=== PATIENT | female | born 1965 | race African-American/Black ===

== ENCOUNTER 2016-05-24 19:26 | Emergency (ER) | payer OTHER ==
[2016-05-24 19:46] VITALS: BP 144/77; PULSE 75; TEMP 97.6; BMI 35.7
--- NOTE | 2016-05-24 20:58 | PDOC ---
History of Present Illness - General Chief Complaint: Pain Stated Complaint: BURPING A LOT/UNDER LT ARM PAIN/LT SHOULDER PAIN Time Seen by Provider: 05/24/16 20:36 History Source: Patient Exam Limitations: No Limitations - History of Present Illness Initial Comments: 05/25/16 00:38 Chief complaint: Left shoulder pain and upper left arm pain that radiated to left chest intermittently late afternoon and evening and pain from left axilla area to left chest intermittently patient reports belching once when she had pain History of present illness: Patient is a 51-year-old female who reports not having any significant medical problems here today due to patient feeling a sudden onset of pain that shot from her left shoulder and upper arm down to her left chest that was sharp in nature intermittently late afternoon and evening today. Patient also reports having pain that she was radiating from under her left axilla area to left chest area that lasted seconds and was sharp in nature patient reports that she felt shortness of breath for a few seconds when having this pain. Patient reports that at one point she did belch after having pain that was shooting from left shoulder upper arm to chest. Patient describes the pain as sharp in nature lasting only for seconds. Patient denies any previous history of having pain like this before. Patient denies that pain radiated radiated down her left arm. Patient denies any abdominal discomfort. Patient reports that she had recently been put on omeprazole after having a colonoscopy and noticing that she had bacteria in her stomach and was given antibiotic and omeprazole. Patient reports that she'll he took omeprazole for a couple of days due to feeling lightheaded. Eyes any history of hypertension, diabetes, family history of cardiac disease. Patient denies any history of smoking or drinking. Patient denies doing any heavy lifting or pulling or pushing that might of course pain. Patient does have risk factor of being obese and having xanthelasma upper b/l eyelids. Denies any pain currently. Patient denied during episodes of pain today having any palpitations or any lightheadedness or dizziness. 05/25/16 00:49 Timing/Duration: intermittent Severity: moderate Associated Symptoms: reports: chest pain (left intermittent , left shoulder area left upper arm radiating to left chest intermittently this evening late afternoon lasting seconds, and pain from left exactly at to left chest intermittently lasting seconds). denies: cough, diaphoresis, headaches, malaise , nausea/vomiting, shortness of breath, syncope, weakness Past History - Past Medical History Allergies/Adverse Reactions: Allergies Allergy/AdvReac Type Severity Reaction Status Date / Time No Known Allergies Allergy Verified 05/24/16 19:46 Home Medications: Ambulatory Orders No Home Medications 0 dose .ROUTE UTDICT 06/22/12 Anemia: No Asthma: No Cancer: No CVA: No CHF: No GI Disorders: No Disorders: No Liver Disease: No Seizures: No Thyroid Disease: No - Psycho/Social/Smoking Cessation Hx Anxiety: No Suicidal Ideation: No Smoking Status: No Smoking History: Never smoked Have you smoked in the past 12 months: No Number of Cigarettes Smoked Daily: 0 Information on smoking cessation initiated: No Hx Alcohol Use: No Drug/Substance Use Hx: No Substance Use Type: None Hx Substance Use Treatment: No Review of Systems - Review of Systems Able to Perform ROS?: Yes Constitutional: No: Symptoms Reported HEENTM: No: Symptoms Reported Respiratory: No: Symptoms reported Cardiac (ROS): Yes: Chest Pain (left chest intermittent sharp pain lasting seconds late afternoon/early evening ). No: Irregular Heart Rate, Lightheadedness, Palpitations, Syncope, Chest Tightness ABD/GI: Yes: Other (belged once during episodes of pain ). No: Abdominal Distended, Constipated, Diarrhea, Difficulty Swallowing, Nausea, Poor Fluid Intake, Rectal Bleeding, Vomiting, Indigestion, Abdominal cramping : No: Symptoms Reported Musculoskeletal: Yes: Joint Pain (left shoulder, upper left arm intermittent sharp pain lasting seconds not reproducible), Other (pain intermittent left axilla radiating to left chest lasting minutes late afternoon evening ) Integumentary: No: Symptoms Reported Neurological: No: Symptoms reported *Physical Exam - Vital Signs Last Vital Signs Temp Pulse Resp BP Pulse Ox 97.6 F 75 18 144/77 100 05/24/16 19:44 05/24/16 19:44 05/24/16 19:44 05/24/16 19:44 05/24/16 19:44 - Physical Exam General Appearance: Yes: Appropriately Dressed Respiratory/Chest: positive: Lungs Clear, Normal Breath Sounds. negative: Chest Tender, Respiratory Distress Cardiovascular: positive: Regular Rhythm, Regular Rate, S1, S2 Gastrointestinal/Abdominal: positive: Normal Bowel Sounds, Soft. negative: Tender, Organomegaly, Distended, Guarding, Rebound, Tenderness, Hepatomegaly, Spleenomegaly Extremity: positive: Normal Capillary Refill, Normal Inspection, Normal Range of Motion (left shoulder, left upper arm ). negative: Tender, Swelling Integumentary: positive: Normal Color Neurologic: positive: Fully Oriented, Alert, Normal Response, Motor Strength 5/ 5 (upper extremities ), Responsive. negative: Numbness, Sensory Deficit (left arm, shoulder) Heart Score/ECG Review - ECG Impressions Comment:: 05/24/16 21:[address] Paige ED Treatment Course - LABORATORY CBC & Chemistry Diagram: 05/24/16 21:30 05/24/16 21:30 Medical Decision Making - Medical Decision Making 05/25/16 00:43 Patient is a 51-year-old female who reports not having any significant medical problems here today due to patient feeling a sudden onset of pain that shot from her left shoulder and upper arm down to her left chest that was sharp in nature intermittently late afternoon and evening today. Patient also reports having pain that she was radiating from under her left axilla area to left chest area that lasted seconds and was sharp in nature patient reports that she felt shortness of breath for a few seconds when having this pain. Patient reports that at one point she did belch after having pain that was shooting from left shoulder upper arm to chest. Patient describes the pain as sharp in nature lasting only for seconds. Patient denies any previous history of having pain like this before. Patient denies that pain radiated radiated down her left arm. Patient denies any abdominal discomfort. Patient reports that she had recently been put on omeprazole after having a colonoscopy and noticing that she had bacteria in her stomach and was given antibiotic and omeprazole. Patient reports that she'll he took omeprazole for a couple of days due to feeling lightheaded. Eyes any history of hypertension, diabetes, family history of cardiac disease. Patient denies any history of smoking or drinking. Patient denies doing any heavy lifting or pulling or pushing that might of course pain. Patient does have risk factor of being obese and having xanthelasma upper b/l eyelids. Denies any pain currently. Intermittent pain from left shoulder upper arm radiating to chest late this afternoon and this evening and also from left distal ureter left chest intermittently Patient denied any abdominal pain Pain to left shoulder upper arm and axilla area to left chest is not reproducible Plan: EKG reviewed by Dr. Paige ST depression anterior leads Maalox 30 ml now xray chest PA/lateral CBC with Diff CMP lipase IV insert pepsid 20 mg IV PB troponin Chelsy charge nurse and Dr. Paige aware that pt. will transfer to main ED for further evaluation 05/25/16 00:46 05/25/16 00:52 *DC/Admit/Observation/Transfer Diagnosis at time of Disposition: Atypical chest pain - Discharge Dispostion Disposition: HOME Condition at time of disposition: Improved - Referrals Referrals: Rafi Hannon MD [Primary Care Provider] - Don Hayden MD [Staff Physician] - - Patient Instructions Printed Discharge Instructions: DI for Atypical Chest Pain, DI for Palpitations Additional Instructions: Please take a copy of results and bring it to your doctor. If you have uncontrollable chest pain or shortness of breath, please return to the ER for further evaluation.
[2016-05-24] MEDS ORDERED: MAG HYDROX/AL HYDROX/SIMETH 30 ML UNIT-DOSE CUP ONE (21:13)
[2016-05-24] MEDS ORDERED: MAG HYDROX/AL HYDROX/SIMETH 30 ML UNIT-DOSE CUP PO ONE (21:15)
[2016-05-24] MEDS ORDERED: FAMOTIDINE 20 MG/50 ML IVPB 50 ML IVPB ONE (21:25)
[2016-05-24 22:03] LABS: ANION GAP 7 (8-16); BILIRUBIN,TOTAL 0.3 mg/dL (0.2-1.0); CALCIUM 9.6 mg/dL (8.5-10.1); CO2 29 mmol/L (21-32); CREATININE 0.7 mg/dL (0.55-1.02); GLUCOSE,RANDOM 90 mg/dL (74-106); SGOT/AST 15 U/L (15-37); SGPT/ALT 18 U/L (12-78); TOT PROT 7.6 g/dl (6.4-8.2)
[2016-05-24 22:04] LABS: ALK PHOS 102 U/L (45-117)
[2016-05-24] MEDS ORDERED: ACETAMINOPHEN 325 MG TABLET (FP) PO ONE (22:06)
[2016-05-24] MEDS ORDERED: RANITIDINE HCL 150 MG TABLET (FP) PO ONE (22:06)
[2016-05-24] MEDS ORDERED: ACETAMINOPHEN 325 MG TABLET (FP) ONE (22:09)
[2016-05-24] MEDS ORDERED: RANITIDINE HCL 150 MG TABLET (FP) ONE (22:10)
--- NOTE | 2016-05-24 22:24 | PDOC ---
History of Present Illness - History of Present Illness Initial Comments: 05/24/16 23:16 Patient is a 51 year old female with significant medical hx of gastritis and H. Pylori who is presenting to the ED with left shoulder pain since this evening. The patient complains of intermittent left sided shoulder pain that occurs for several minutes at a time. Her pain is non-exertional and is described as an ache. The patient denies any recent falls or trauma to the shoulder. She also endorses some abdominal discomfort that she states is secondary to her gastritis. Patient denies any fever, chills, chest pain, shortness of breath, and diaphoresis. <Aliza Ireland - Last Filed: 05/24/16 23:16> - General History Source: Patient Exam Limitations: No Limitations <Jaiden Paige - Last Filed: 05/25/16 00:15> - General Chief Complaint: Pain Stated Complaint: BURPING A LOT/UNDER LT ARM PAIN/LT SHOULDER PAIN Time Seen by Provider: 05/24/16 20:36 Past History <Aliza Ireland - Last Filed: 05/24/16 23:16> - Past Medical History Anemia: No Asthma: No Cancer: No CVA: No CHF: No GI Disorders: No Disorders: No Liver Disease: No Seizures: No Thyroid Disease: No - Psycho/Social/Smoking Cessation Hx Anxiety: No Suicidal Ideation: No Smoking Status: No Smoking History: Never smoked Have you smoked in the past 12 months: No Number of Cigarettes Smoked Daily: 0 Information on smoking cessation initiated: No Hx Alcohol Use: No Drug/Substance Use Hx: No Substance Use Type: None Hx Substance Use Treatment: No <Jaiden Paige - Last Filed: 05/25/16 00:15> - Past Medical History Allergies/Adverse Reactions: Allergies Allergy/AdvReac Type Severity Reaction Status Date / Time No Known Allergies Allergy Verified 05/24/16 19:46 Home Medications: Ambulatory Orders No Home Medications 0 dose .ROUTE UTDICT 06/22/12 Review of Systems - Review of Systems Comments:: 05/24/16 23:20 GENERAL/CONSTITUTIONAL: No fever or chills. No weakness. HEAD, EYES, EARS, NOSE AND THROAT: No change in vision. No ear pain or discharge. No sore throat. CARDIOVASCULAR: No chest pain or shortness of breath. RESPIRATORY: No cough, wheezing, or hemoptysis. GASTROINTESTINAL: Abdominal discomfort. No nausea, vomiting, diarrhea or constipation. GENITOURINARY: No dysuria, frequency, or change in urination. MUSCULOSKELETAL: Left sided shoulder pain. No joint or muscle swelling. No neck pain. SKIN: No rash NEUROLOGIC: No headache, vertigo, loss of consciousness, or change in strength/ sensation. <BekaDaronAliza - Last Filed: 05/24/16 23:16> *Physical Exam - Vital Signs Last Vital Signs Temp Pulse Resp BP Pulse Ox 97.6 F 75 18 144/77 100 05/24/16 19:44 05/24/16 19:44 05/24/16 19:44 05/24/16 19:44 05/24/16 19:44 - Physical Exam Comments: 05/24/16 23:21 GENERAL: Awake, alert, and fully oriented, in no acute distress HEAD: No signs of trauma EYES: PERRLA, EOMI, sclera anicteric, conjunctiva clear ENT: Auricles normal inspection, hearing grossly normal, nares patent, oropharynx clear without exudates. Moist mucosa NECK: Normal ROM, supple, no lymphadenopathy, JVD, or masses LUNGS: Breath sounds equal, clear to auscultation bilaterally. No wheezes, and no crackles HEART: Regular rate and rhythm, normal S1 and S2, no murmurs, rubs or gallops ABDOMEN: Soft, nontender, normoactive bowel sounds. No guarding, no rebound. No masses EXTREMITIES: Normal range of motion, no edema. No clubbing or cyanosis. No cords, erythema, or tenderness NEUROLOGICAL: Cranial nerves II through XII grossly intact. Normal speech, normal gait SKIN: Warm, Dry, normal turgor, no rashes or lesions noted. ENDOCRINE: No increased thirst. No abnormal weight change. HEMATOLOGIC/LYMPHATIC: No anemia, easy bleeding, or history of blood clots. ALLERGIC/IMMUNOLOGIC: No hives or skin allergy. <BekaAliza - Last Filed: 05/24/16 23:16> - Vital Signs Last Vital Signs Temp Pulse Resp BP Pulse Ox 97.6 F 75 18 144/77 100 05/24/16 19:44 05/24/16 19:44 05/24/16 19:44 05/24/16 19:44 05/24/16 19:44 <Jaiden Paige - Last Filed: 05/25/16 00:15> Heart Score/ECG Review - History History: Slightly suspicious - Electrocardiogram EKG: Non specific repolarization disturbance - Age Age: 45-65 - Risk Factors Based on the list above the patient has:: No risk factors known - Troponin Troponin: </= normal limit - Score Heart Score - Total: 2 #1 ECG reviewed & interpreted by me at: 21:00 05/24/16 22:24 NSR 75, TWi III , VWI V4-V6, no std/ann, normal axis, normal intervals, QTC 422 msec <Jaiden Paige - Last Filed: 05/25/16 00:15> ED Treatment Course - LABORATORY CBC & Chemistry Diagram: 05/24/16 21:30 05/24/16 21:30 - ADDITIONAL ORDERS Additional order review: Laboratory Results 05/24/16 05/24/16 21:30 21:30 Sodium 141 Potassium 3.9 Chloride 105 Carbon Dioxide 29 Anion Gap 7 L BUN 11 Creatinine 0.7 Creat Clearance w eGFR > 60 Random Glucose 90 Calcium 9.6 Total Bilirubin 0.3 AST 15 D ALT 18 Alkaline Phosphatase 102 Creatine Kinase 201 H Troponin I < 0.02 Total Protein 7.6 Albumin 4.0 Lipase Cancelled 133 05/24/16 21:30 RBC 4.97 MCV 77.9 L MCHC 33.7 RDW 15.0 MPV 8.9 Neutrophils % 41.2 L Lymphocytes % 49.5 H Monocytes % 6.0 Eosinophils % 2.5 Basophils % 0.8 - Medications Given in the ED: ED Medications Discontinued Medications Generic Name Dose Route Start Last Admin Trade Name Zafar PRN Reason Stop Dose Admin Acetaminophen 650 mg 05/24/16 22:06 05/24/16 22:12 Tylenol - PO 05/24/16 22:07 650 mg ONCE ONE Administration Al Hydroxide/Mg Hydroxide 30 ml 05/24/16 21:15 05/24/16 21:21 Mylanta Oral Suspension - PO 05/24/16 21:16 30 ml ONCE ONE Administration Famotidine/Sodium Chloride 50 mls @ 100 mls/hr 05/24/16 21:25 05/24/16 22:13 Pepcid 20 Mg Premixed Ivpb - IVPB 05/24/16 21:54 Not Given ONCE ONE Ranitidine HCl 150 mg 05/24/16 22:06 05/24/16 22:12 Zantac - PO 05/24/16 22:07 150 mg ONCE ONE Administration <Aliza Ireland - Last Filed: 05/24/16 23:16> - LABORATORY CBC & Chemistry Diagram: 05/24/16 21:30 05/24/16 21:30 - ADDITIONAL ORDERS Additional order review: Laboratory Results 05/24/16 05/24/16 21:30 21:30 Sodium 141 Potassium 3.9 Chloride 105 Carbon Dioxide 29 Anion Gap 7 L BUN 11 Creatinine 0.7 Creat Clearance w eGFR > 60 Random Glucose 90 Calcium 9.6 Total Bilirubin 0.3 AST 15 D ALT 18 Alkaline Phosphatase 102 Total Protein 7.6 Albumin 4.0 Lipase Cancelled 133 - Medications Given in the ED: ED Medications Discontinued Medications Generic Name Dose Route Start Last Admin Trade Name Federicoq PRN Reason Stop Dose Admin Acetaminophen 650 mg 05/24/16 22:06 05/24/16 22:12 Tylenol - PO 05/24/16 22:07 650 mg ONCE ONE Administration Al Hydroxide/Mg Hydroxide 30 ml 05/24/16 21:15 05/24/16 21:21 Mylanta Oral Suspension - PO 05/24/16 21:16 30 ml ONCE ONE Administration Famotidine/Sodium Chloride 50 mls @ 100 mls/hr 05/24/16 21:25 05/24/16 22:13 Pepcid 20 Mg Premixed Ivpb - IVPB 05/24/16 21:54 Not Given ONCE ONE Ranitidine HCl 150 mg 05/24/16 22:06 05/24/16 22:12 Zantac - PO 05/24/16 22:07 150 mg ONCE ONE Administration <Jaiden Paige - Last Filed: 05/25/16 00:15> Medical Decision Making - Medical Decision Making 05/24/16 22:24 A portion of this note was documented by scribe services under my direction. I have reviewed the details of the note, within reason, and agree with the documentation with the following case summary and management plan written by me. Patient treated in the ED. Nursing notes are reviewed and incorporated into the medical decision-making. Vital signs reviewed. Peripheral IV access obtained by the nurse, laboratory studies are drawn and sent, reviewed and interpreted by myself. Vital Signs Temp Pulse Resp BP Pulse Ox 97.6 F 75 18 144/77 100 05/24/16 19:44 05/24/16 19:44 05/24/16 19:44 05/24/16 19:44 05/24/16 19:44 51-year-old female with past medical history of gastritis and H. pylori presents to the emergency department for atypical left sided shoulder pain. Patient reports that she had some epigastric abdominal discomfort that feels secondary to her gastritis. She noted throughout the evening time that she was feeling this intermittent several minutes, nonexertional left shoulder ache. Patient denies any midsternal chest pain. Denies short of breath. She reports that the pain is coming going. Upon my knowledge, patient no symptoms at this time. I suspect that the patient's symptoms are likely secondary to her GERD and gastritis and irritation to her shoulder. My suspicion for acute coronary syndrome is low. However, patient noted to have T-wave versions in V4 through V6 with no EKGs to compare to. We'll obtain to troponins and if workup is negative, we'll discharge with cardiology follow-up as an outpatient. She is deemed to be very low risk given her atypical nature. 05/25/16 00:12 Chest xray reviewed by me, pending official read. No acute findings. CBC, BMP 05/24/16 21:30 05/24/16 21:30 CMP Sodium 141 mmol/L (136-145) 05/24/16 21:30 Potassium 3.9 mmol/L (3.5-5.1) 05/24/16 21:30 Chloride 105 mmol/L (98-107) 05/24/16 21:30 Carbon Dioxide 29 mmol/L (21-32) 05/24/16 21:30 Anion Gap 7 (8-16) L 05/24/16 21:30 BUN 11 mg/dL (7-18) 05/24/16 21:30 Creatinine 0.7 mg/dL (0.55-1.02) 05/24/16 21:30 Creat Clearance w eGFR > 60 (>60) 05/24/16 21:30 Random Glucose 90 mg/dL (74-106) 05/24/16 21:30 Calcium 9.6 mg/dL (8.5-10.1) 05/24/16 21:30 Total Bilirubin 0.3 mg/dL (0.2-1.0) 05/24/16 21:30 AST 15 U/L (15-37) D 05/24/16 21:30 ALT 18 U/L (12-78) 05/24/16 21:30 Alkaline Phosphatase 102 U/L (45-117) 05/24/16 21:30 Creatine Kinase 191 IU/L (26-192) 05/24/16 23:18 CK-MB (CK-2) 1.581 ng/ml (0.5-3.6) 05/24/16 21:30 Troponin I < 0.02 ng/ml (0.00-0.05) 05/24/16 23:18 Total Protein 7.6 g/dl (6.4-8.2) 05/24/16 21:30 Albumin 4.0 g/dl (3.4-5.0) 05/24/16 21:30 Lipase 133 U/L (73-393) 05/24/16 21:30 Two troponins negative. Patient reports feeling well. She feels reassured. Again, I suspect that this is atypical chest pain and not acute coronary syndrome. We'll give referral to a sr account executive. Return precautions given. I discussed the physical exam findings, ancillary test results and final diagnoses with the patient. I answered all of the patient's questions. The patient was satisfied with the care received and felt comfortable with the discharge plan and treatment plan. The patient will call their primary care physician within 24 hours to arrange follow-up and will return to the Emergency Department with any new, persistant or worsening symptoms. <Jaiden Paige - Last Filed: 05/25/16 00:15> *DC/Admit/Observation/Transfer - Attestations Scribe Attestion: 05/24/16 23:21 Documentation prepared by Aliza Ireland, acting as medical equipment repairer for Jaiden Paige MD. <Aliza Ireland - Last Filed: 05/24/16 23:16> - Discharge Dispostion Admit: No <Jaiden Paige - Last Filed: 05/25/16 00:15> Diagnosis at time of Disposition: Atypical chest pain - Discharge Dispostion Disposition: HOME Condition at time of disposition: Improved - Referrals Referrals: Rafi Hannon MD [Primary Care Provider] - Don Hayden MD [Staff Physician] - - Patient Instructions Printed Discharge Instructions: DI for Atypical Chest Pain, DI for Palpitations Additional Instructions: Please take a copy of results and bring it to your doctor. If you have uncontrollable chest pain or shortness of breath, please return to the ER for further evaluation.
[2016-05-24 22:42] LABS: BASOPHIL 0.8 % (0-2.0); EOSINOPHIL 2.5 % (0-4.5); MCH 26.2 pg (25.7-33.7); MCHC 33.7 g/dl (32.0-36.0); MEAN CELL VOLUME 77.9 fl (80-96); MEAN PLT VOLUME 8.9 fl (7.5-11.1); NEUTROPHILS 41.2 % (42.8-82.8); PLATELET COUNT 208 K/MM3 (134-434); WHITE BLOOD COUNT 6.5 K/mm3 (4.0-10.0)
[2016-05-24 22:57] LABS: TROPONIN I < 0.02 ng/ml (0.00-0.05)
[2016-05-24 23:21] LABS: PLATELET ESTIMATE ADEQUATE (NORMAL)
[2016-05-25 00:05] LABS: TROPONIN I < 0.02 ng/ml (0.00-0.05)
--- NOTE | 2016-05-26 11:23 | EKG ---
Test Reason : Blood Pressure : / mmHG Vent. Rate : 075 BPM Atrial Rate : 075 BPM P-R Int : 146 ms QRS Dur : 072 ms QT Int : 378 ms P-R-T Axes : 037 037 003 degrees QTc Int : 422 ms NORMAL SINUS RHYTHM POSSIBLE LEFT ATRIAL ENLARGEMENT NONSPECIFIC T WAVE ABNORMALITY ABNORMAL ECG WHEN COMPARED WITH ECG OF 24-SEP-2013 14:10, NO SIGNIFICANT CHANGE WAS FOUND Confirmed by LUCIE SCHWARTZ MD ([id number]) on 05/26/2016 11:22:59 AM Referred By: Confirmed By:LUCIE SCHWARTZ MD
== END 2016-05-25 00:52 | disposition home or self-care (01) ==
LOC: JERFT 19:26 → JER 19:26
DX: R07.89 Other chest pain (principal)
CPT/HCPCS: 36415; 71020-TC; 80053; 82550; 82553; 83690; 84484; 85025; 93005; 93010; 99282-25

== ENCOUNTER 2016-10-21 18:01 | Emergency (ER) | payer OTHER ==
[2016-10-21 18:19] VITALS: BP 119/77; PULSE 77; TEMP 98.3; BMI 33.6
[2016-10-21] MEDS ORDERED: IBUPROFEN 600 MG TABLET (FP) PO ONE (18:30)
--- NOTE | 2016-10-21 18:31 | PDOC ---
History of Present Illness - General Chief Complaint: Ear Problem Stated Complaint: HEADACHE ON LEFT SIDE Time Seen by Provider: 10/21/16 18:23 History Source: Patient Exam Limitations: No Limitations - History of Present Illness Initial Comments: 10/21/16 18:31 51 yr female with c/o right side ear pain radiates to side of neck for 4 days with headache on the right side. pt denies fever, chills no sore throat. . 10/21/16 19:00 Severity: moderate Past History - Past Medical History Allergies/Adverse Reactions: Allergies Allergy/AdvReac Type Severity Reaction Status Date / Time No Known Allergies Allergy Verified 10/21/16 18:34 Home Medications: Ambulatory Orders No Home Medications 0 dose .ROUTE UTDICT 06/22/12 Naproxen [Naprosyn -] 500 mg PO BID #28 tablet 10/21/16 Anemia: No Asthma: No Cancer: No CVA: No CHF: No GI Disorders: No Disorders: No Liver Disease: No Seizures: No Thyroid Disease: No Other medical history: DENIES MEDICAL HX - Psycho/Social/Smoking Cessation Hx Anxiety: No Suicidal Ideation: No Smoking Status: No Smoking History: Never smoked Have you smoked in the past 12 months: No Number of Cigarettes Smoked Daily: 0 Hx Alcohol Use: No Drug/Substance Use Hx: No Substance Use Type: None Hx Substance Use Treatment: No *Physical Exam - Vital Signs Last Vital Signs Temp Pulse Resp BP Pulse Ox 98.3 F 77 16 119/77 100 10/21/16 18:17 10/21/16 18:17 10/21/16 18:17 10/21/16 18:17 10/21/16 18:17 - Physical Exam General Appearance: Yes: Nourished, Appropriately Dressed HEENT: positive: EOMI, JESSICA, Normal ENT Inspection, TMs Normal, Pharynx Normal. negative: Pharyngeal Erythema, Tonsillar Exudate, Tonsillar Erythema Neck: positive: Supple, Other (FROM neg midline tenderness ). negative: Tender , Decreased range of motion, Rigidity, Tender lateral, Tender midline Respiratory/Chest: positive: Lungs Clear, Normal Breath Sounds Cardiovascular: positive: Regular Rhythm, Regular Rate Gastrointestinal/Abdominal: positive: Normal Bowel Sounds, Soft Lymphatic: negative: Adenopathy Musculoskeletal: positive: Normal Inspection Extremity: positive: Normal Capillary Refill, Normal Inspection, Normal Range of Motion Integumentary: positive: Normal Color, Dry, Warm Neurologic: positive: informatics scientist II-XII NML intact, Fully Oriented, Alert, Normal Mood/ Affect, Normal Response, Motor Strength 07/12 ED Treatment Course - LABORATORY CBC & Chemistry Diagram: 10/21/16 18:50 - RADIOLOGY Radiology Studies Ordered: Category Date Time Status NECK SOFT TISSUE [RAD] Stat Radiology 10/21/16 18:30 Ordered Medical Decision Making - Medical Decision Making 10/21/16 18:35 cc: right ear pain to side of neck and throat for 4 days took tylenol no relief no fever no chills no chest pain or coughing no recent travel no trauma will r/o strep will get soft tissue neck 10/21/16 18:49 soft tissue negative will get CTA r/o carotid artery disection/occlusion 10/21/16 19:01 10/21/16 21:28 radiology tests have resulted and are all negative for acute pathology. I will refer pt to ENT and give pain medicine there is no sign of infection at present, no fever, no chills. rapid strep is negative. *DC/Admit/Observation/Transfer Diagnosis at time of Disposition: Right ear pain, Neck pain on right side - Discharge Dispostion Disposition: HOME Condition at time of disposition: Good - Prescriptions Prescriptions: Naproxen [Naprosyn -] 500 mg PO BID #28 tablet - Referrals Referrals: Rafi Hannon MD [Primary Care Provider] - Foster Cummings MD [Staff Physician] - - Patient Instructions Additional Instructions: please follow with the ENT doctor and your primary care doctor for follow up take naprosyn for pain as directed
[2016-10-21] MEDS ORDERED: IBUPROFEN 400 MG TABLET (FP) PO ONE (18:32)
[2016-10-21 19:50] LABS: ALBUMIN 3.8 g/dl (3.4-5.0); ANION GAP 6 (8-16); BILIRUBIN,TOTAL 0.4 mg/dL (0.2-1.0); CO2 30 mmol/L (21-32); CREATININE 0.8 mg/dL (0.55-1.02); GLUCOSE,RANDOM 98 mg/dL (74-106); SGOT/AST 13 U/L (15-37); SGPT/ALT 21 U/L (12-78); TOT PROT 7.2 g/dl (6.4-8.2)
[2016-10-21 19:51] LABS: ALK PHOS 91 U/L (45-117)
== END 2016-10-21 21:50 | disposition home or self-care (01) ==
LOC: JERFT 18:01
DX: H92.01 Otalgia, right ear (principal); M54.2 Cervicalgia
CPT/HCPCS: 36415; 70360-TC; 70450-TC; 70498-TC; 80053; 87070; 87430; 99281-25

== ENCOUNTER 2018-03-31 18:06 | Emergency (ER) | payer OTHER ==
--- NOTE | 2018-03-31 18:11 | PDOC ---
Rapid Medical Evaluation Chief Complaint: Headache Time Seen by Provider: 03/31/18 18:09 Medical Evaluation: Allergies Allergy/AdvReac Type Severity Reaction Status Date / Time No Known Allergies Allergy Verified 10/21/16 18:34 03/31/18 18:10 I have performed a brief in person evaluation of this patient. The patient's CC: WOO HPI: Pt is a 53 Yo female who states she has had a WOO x 3 weeks. Denies hx of migraines, denies N/V. Denies fever or nuchal rigidity. PE: Skin: Clear Heart: RRR Lungs: Clear MS. moves all extremities without difficulty. Neuro: Alert and oriented Psch: appropriate affect The patient will proceed to [facility] for further evaluation. Discharge Disposition - Diagnosis Headache Qualifiers: Headache type: unspecified Headache chronicity pattern: acute headache Intractability: not intractable Qualified Code(s): R51 - Headache - Referrals - Patient Instructions - Post Discharge Activity
[2018-03-31 18:13] VITALS: BMI 33.6
--- NOTE | 2018-03-31 21:10 | PDOC ---
Attending Attestation - HPI HPI: 03/31/18 23:01 The patient is a 53 year old female, with no significant past medical history, who presents to the emergency department with, 1-2 weeks of a headache described as right sided, achy, squeezing. She denies any visionary changes or recent head/neck trauma. She denies recent fevers, chills, or dizziness. She denies recent nausea, vomit, diarrhea or constipation. She denies recent dysuria, frequency, urgency or hematuria. She denies recent chest pain or shortness of breath. Allergies: NKDA <Elias Marie - Last Filed: 03/31/18 23:01> - Resident Resident Name: Diamond Dye - ED Attending Attestation I have performed the following: I have examined & evaluated the patient, The case was reviewed & discussed with the resident, I agree w/resident's findings & plan - Physicial Exam PE: 03/31/18 23:53 Agree with resident exam - Medical Decision Making 03/31/18 23:53 Well-appearing 53-year-old female with intermittent right-sided headache Patient denies history of headaches in the past though she was seen approximately 1-1/2 years ago for similar complaints CT scan of the brain performed today is within normal limits Headache was not sudden in onset, there is no associated neck stiffness or fever , based on clinical presentation and history lumbar puncture is not indicated at this time would present more potential risk and benefits Plan is for discharge home with outpatient neurology follow-up for further evaluation <Leila Robledo - Last Filed: 03/31/18 23:54> Attestations - Attestations 03/31/18 23:01 Documentation prepared by Elias Marie, acting as medical instrument cable fabricator for Leila Robledo DO. <Elias Marie - Last Filed: 03/31/18 23:01>
[2018-03-31] MEDS ORDERED: METOCLOPRAMIDE HCL 10 MG TABLET (FP) PO ONE ×2 (22:16→23:49)
[2018-03-31] MEDS ORDERED: SODIUM CHLORIDE 0.9% 500 ML INFUS.BAG IV ONE (22:16)
[2018-03-31] MEDS ORDERED: ACETAMINOPHEN 1000 MG/100 ML VIAL (NON FORMULARY) IVPB ONE (22:18)
--- NOTE | 2018-03-31 22:40 | PDOC ---
History of Present Illness - General Chief Complaint: Headache Stated Complaint: Headache Time Seen by Provider: 03/31/18 18:09 - History of Present Illness Initial Comments: 53 year old female with no PMH presenting with right sided headache for the past week refractory to Ibuprofen, Tylenol, and Excedrin at home. States that it is an achy and squeeezing pain that radiates upa nd down the right side of his head. Denies any nausea, vomiting, focal deficit, photophobia, or sonophobia. Better with tylenol, motrion, and rest. Worse when bending over and at night. She is a home health aid. Denies any fevers, chills, chest pain, or other symptoms. She sees Dr. Patel for her PCP needs. 03/31/18 22:40 Past History - Past Medical History Allergies/Adverse Reactions: Allergies Allergy/AdvReac Type Severity Reaction Status Date / Time No Known Allergies Allergy Verified 03/31/18 18:10 Home Medications: Ambulatory Orders No Home Medications 0 dose .ROUTE UTDICT 06/22/12 Naproxen [Naprosyn -] 500 mg PO BID #28 tablet 10/21/16 Anemia: No Asthma: No Cancer: No CVA: No COPD: No CHF: No GI Disorders: No Disorders: No Liver Disease: No Seizures: No Thyroid Disease: No - Immunization History Immunization Up to Date: Yes - Suicide/Smoking/Psychosocial Hx Smoking Status: No Smoking History: Never smoked Have you smoked in the past 12 months: No Number of Cigarettes Smoked Daily: 0 Hx Alcohol Use: No Drug/Substance Use Hx: No Substance Use Type: None Hx Substance Use Treatment: No Review of Systems - Review of Systems Constitutional: No: Chills, Diaphoresis, Fever, Loss of Appetite HEENTM: No: Blurred Vision, Tearing, Recent change in vision, Double Vision Respiratory: No: Cough, Orthopnea, Shortness of Breath Cardiac (ROS): No: Chest Pain, Edema, Irregular Heart Rate ABD/GI: No: Diarrhea, Nausea, Vomiting : No: Dysuria, Discharge, Frequency Musculoskeletal: No: Back Pain, Joint Pain, Joint Swelling Integumentary: No: Bruising, Lesions, Lumps Neurological: No: Headache, Numbness, Paresthesia Psychiatric: No: Anxiety, Depression Hematologic/Lymphatic: No: Anemia, Blood Clots, Easy Bleeding *Physical Exam - Vital Signs Last Vital Signs Temp Pulse Resp BP Pulse Ox 98.1 F 92 H 17 131/83 100 03/31/18 18:10 03/31/18 18:10 03/31/18 18:10 03/31/18 18:10 03/31/18 18:10 - Physical Exam General Appearance: Yes: Nourished, Appropriately Dressed. No: Apparent Distress HEENT: positive: EOMI, JESSICA, Normal ENT Inspection, Normal Voice, Other (No scalp tenderness or palpable cord.) Neck: positive: Trachea midline, Normal Thyroid, Supple. negative: Tender, Rigid Respiratory/Chest: positive: Lungs Clear, Normal Breath Sounds. negative: Chest Tender, Respiratory Distress Cardiovascular: positive: Regular Rhythm, Regular Rate Gastrointestinal/Abdominal: positive: Normal Bowel Sounds, Flat, Soft. negative : Tender Musculoskeletal: positive: Normal Inspection. negative: Vertebral Tenderness Extremity: positive: Normal Capillary Refill, Normal Inspection, Normal Range of Motion. negative: Tender Integumentary: positive: Normal Color, Dry, Warm Neurologic: positive: Fully Oriented, Alert, Normal Mood/Affect, Normal Response , Motor Strength 5/5 Moderate Sedation - Procedure Monitoring Vital Signs: Procedure Monitoring Vital Signs Temperature 98.1 F 03/31/18 18:10 Pulse Rate 92 H 03/31/18 18:10 Respiratory Rate 17 03/31/18 18:10 Blood Pressure 131/83 03/31/18 18:10 O2 Sat by Pulse Oximetry (%) 100 03/31/18 18:10 ED Treatment Course - RADIOLOGY Radiology Studies Ordered: Category Date Time Status HEAD CT WITHOUT CONTRAST [CT] Stat CT Scan 03/31/18 22:00 Ordered Medical Decision Making - Medical Decision Making 53 year old female with no PMH by admission but per chart has been to our ED multiple times for unrelated complaints but has had headaches. 03/31/18 23:[address] negative, pain improved with Reglan and IV NS. Discharged with Syed follow up and return precautions. *DC/Admit/Observation/Transfer Diagnosis at time of Disposition: Headache Qualifiers: Headache type: unspecified Headache chronicity pattern: acute headache Intractability: not intractable Qualified Code(s): R51 - Headache - Discharge Dispostion Disposition: HOME Condition at time of disposition: Improved - Referrals Referrals: Rafi Hannon MD [Primary Care Provider] - Rodney Almonte MD [Staff Physician] - - Patient Instructions Printed Discharge Instructions: DI for Headache Additional Instructions: Please call Dr. Almonte to get better control of your headaches. Please use Tylenol and ibuprofen for you headaches at home. Please return to the Ed if you have new or worsening symptoms. - Post Discharge Activity
[2018-03-31] MEDS ORDERED: ACETAMINOPHEN INJECTION 100 ML IVPB ONE (23:50)
[2018-04-01 03:09] VITALS: BP 126/81; PULSE 82; TEMP 98.6
== END 2018-04-01 03:09 | disposition home or self-care (01) ==
LOC: JER 18:06
PROC: 3E033NZ Introduction of Analgesics, Hypnotics, Sedatives into Peripheral Vein, Percutaneous Approach (ICD-10-PCS; principal; 2018-03-31)
DX: R51 Headache (principal)
CPT/HCPCS: 70450-TC; 96365; 99282-25; J0131

== ENCOUNTER 2018-09-13 09:53 | Emergency (ER) | payer OTHER ==
[2018-09-13 10:05] VITALS: BP 123/85; PULSE 95; TEMP 98.6; BMI 35.2
--- NOTE | 2018-09-13 10:25 | PDOC ---
History of Present Illness - General Chief Complaint: Pain Stated Complaint: PAIN Time Seen by Provider: 09/13/18 10:19 History Source: Patient (R knee pain X 3yrs) - History of Present Illness Associated Symptoms: denies: fever/chills, weakness Past History - Travel Traveled outside of the country in the last 30 days: No Close contact w/someone who was outside of country & ill: No - Past Medical History Allergies/Adverse Reactions: Allergies Allergy/AdvReac Type Severity Reaction Status Date / Time No Known Allergies Allergy Verified 09/13/18 10:01 Home Medications: Ambulatory Orders No Home Medications 0 dose .ROUTE UTDICT 06/22/12 Naproxen [Naprosyn -] 500 mg PO BID #28 tablet 10/21/16 Anemia: No Asthma: No Cancer: No CVA: No COPD: No CHF: No GI Disorders: No Disorders: No Liver Disease: No Seizures: No Thyroid Disease: Yes - Immunization History Immunization Up to Date: Yes - Suicide/Smoking/Psychosocial Hx Smoking Status: No Smoking History: Never smoked Have you smoked in the past 12 months: No Number of Cigarettes Smoked Daily: 0 Hx Alcohol Use: No Drug/Substance Use Hx: No Substance Use Type: None Hx Substance Use Treatment: No Review of Systems - Review of Systems Is the patient limited Amharic proficient: No Constitutional: No: Chills, Fever Musculoskeletal: Yes: Joint Pain (R kknee). No: Gout, Joint Swelling, Muscle Pain, Muscle Weakness, Joint Stiffness *Physical Exam - Vital Signs Last Vital Signs Temp Pulse Resp BP Pulse Ox 98.6 F 95 H 18 123/85 100 09/13/18 09:58 09/13/18 09:58 09/13/18 09:58 09/13/18 09:58 09/13/18 09:58 - Physical Exam General Appearance: Yes: Nourished Extremity: positive: Normal Capillary Refill, Normal Inspection, Normal Range of Motion, Tender (medial aspect of knee, + crepitus on range of motion,stable gait). negative: Calf Tenderness Neurologic: positive: moving picture producer II-XII NML intact, Fully Oriented, Alert, Normal Mood/ Affect, Normal Response, Motor Strength 5/5 ED Treatment Course - RADIOLOGY Radiology Studies Ordered: Category Date Time Status KNEE 3 POS-RIGHT [RAD] Stat Radiology 09/13/18 10:19 Ordered Medical Decision Making - Medical Decision Making 09/13/18 10:24 53y/o F with R knee pain X 3yrs seen by orthopedic 3yrs ago, underwent MRI and xray, reports she was not told about the outcome of results p/w to ER with pain and crepitus on ROM denies fever, chills or recent injury or fall 09/13/18 11:13 xray negative for acute process ortho f/u recommended *DC/Admit/Observation/Transfer Diagnosis at time of Disposition: Knee pain, right Qualifiers: Chronicity: chronic Qualified Code(s): M25.561 - Pain in right knee - Discharge Dispostion Disposition: HOME Condition at time of disposition: Stable Decision to Admit order: No - Referrals Referrals: Rafi Hannon MD [Primary Care Provider] - Conor Rhodes DO [Staff Physician] - - Patient Instructions Printed Discharge Instructions: DI for Knee Pain Additional Instructions: Your xray was negative for acute fracture or dislocation please follow up with orthopedics Take Motrin or Tylenol for pain return to the ER If worsening symptoms occurs - Post Discharge Activity
== END 2018-09-13 11:11 | disposition home or self-care (01) ==
LOC: JER 09:53 → JERFT 09:53
DX: M25.561 Pain in right knee (principal); E07.9 Disorder of thyroid, unspecified
CPT/HCPCS: 73562-TC-RT-FY; 99282-25

== ENCOUNTER 2023-05-03 17:47 | Emergency (ER) | payer OTHER ==
[2023-05-03 17:59] VITALS: BP 137/60; PULSE 82; RESP 18; TEMP 97.6; BMI 33.6
[2023-05-03 18:28] LABS: URINE APPEARANCE CLEAR; URINE BILIRUBIN NEGATIVE (NEGATIVE); URINE COLOR YELLOW; URINE GLUCOSE (UA) NEGATIVE (NEGATIVE); URINE KETONE NEGATIVE (NEGATIVE); URINE LEUK ESTERASE NEGATIVE (NEGATIVE); URINE NITRITE NEGATIVE (NEGATIVE); URINE PROTEIN NEGATIVE (NEGATIVE); URINE UROBILINOGEN 0.2 mg/dL (0.2-1.0)
[2023-05-03 19:05] LABS: URINE RBC 21.2 /uL (0-23.9); URINE WBC 2.9 /uL (0-25.8)
[2023-05-03 19:06] LABS: EPI CELLS 2.7 /uL (0-25.1); HYALINE CASTS 0 /uL (0-3.1); URINE BACTERIA 9.6 /uL (0-1359)
== END 2023-05-03 19:06 | disposition home or self-care (01) ==
LOC: JERFT 17:47
DX: R35.0 Frequency of micturition (principal)
CPT/HCPCS: 81003; 87077; 87086; 99283-25